=== PATIENT | male | born 1990 | race Caucasian/White ===

== ENCOUNTER 2016-05-11 14:16 | Emergency (ER) | payer BC, OTHER ==
[2016-05-11 14:30] VITALS: BP 149/72; PULSE 66; RESP 16; TEMP 98.4; O2SAT 97
--- NOTE | 2016-05-11 15:07 | UCPHY ---
H & P Patient Type: New Chief Complaint Nursing Narrative: infected pustule r knee HPI/ROS: HPI CHIEF COMPLAINT: Abscess right knee HISTORY OF PRESENT ILLNESS: This patient very pleasant 25-year-old male denies any significant medical or surgical history does not take any daily medications , presents to the urgent care with a small abscess to the medial aspect of the right knee. No joint involvement. Full range of motion. States it has been there for 24 hours. It has been draining has been squeezing yellow purulent material from it. Denies fever. Denies history of MRSA infection. Past Medical History: No significant medical history Past Surgical History: No significant surgical history Social History: denies daily use of tobacco drugs or alcohol Family History: Noncontributory ROS REVIEW OF SYSTEMS: A comprehensive 10 point review of systems is otherwise negative aside from elements mentioned in the history of present illness. Exam Constitutional triage nursing summary reviewed, vital signs reviewed, awake/ alert. Eyes normal conjunctivae and sclera, EOMI, PERRLA. HENT normal inspection, atraumatic, moist mucus membranes, no epistaxis, neck supple/ no meningismus, no raccoon eyes. Respiratory clear to auscultation bilaterally, normal breath sounds, no respiratory distress, no wheezing. Cardiovascular rate normal, regular rhythm, no murmur, no edema, distal pulses normal. Gastrointestinal soft, non-tender, no rebound, no guarding, normal bowel sounds, no distension, no pulsatile mass. Genitourinary no CVA tenderness. Musculoskeletal no midline vertebral tenderness, full range of motion, no calf swelling, no tenderness of extremities, no meningismus, good pulses, neurovascularly intact. Skin right knee: Medial aspect there is an area 3 cm x 3 cm of abscess with a head present. Minimal fluctuance. No significant induration. No involvement of the joint. Full range of motion knee. No streaking. pink, warm , & dry, no rash, skin atraumatic. Neurologic awake, alert and oriented x 3, AAOx3, moves all 4 extremities equally, motor intact, sensory intact, CN II-XII intact, normal cerebellar, normal vision, normal speech. Psychiatric normal mood/affect. Heme/Lymph/Immune no lymphadenopathy. Differential Diagnosis: Includes but is not limited to in a particular order, MRSA infection, strep infection, abscess, cellulitis Medical Decision Making: patient here in the Urgent Care has a very small abscess patient had an I and D of this small abscess. Patient be placed on Keflex and Bactrim. Re-evaluation: I+D: 1% lidocaine and epinephrine was used for local anesthesia. 5 cc were used. Was able to unroof the head of this abscess. There are 3 cc of purulent material drained. He tolerated this procedure very well. No packing. As is not very deep. He understands use warm compresses 3 to 4 times a day for 20 minutes. Take Keflex and Bactrim as prescribed if he develops any worsening redness, swelling, fever, pain he needs to seek re-evaluation in 12:48 p.m. forty eight hours in the emergency room if worse go sooner. He understands. Source: Patient - Personal History Current Tetanus/Diphtheria Vaccine: Yes - Medical/Surgical History Hx Asthma: No Hx Chronic Respiratory Disease: No Hx Diabetes: No Hx Cardiac Disease: No Hx Renal Disease: No Hx Cirrhosis: No Hx Alcoholism: No Hx HIV/AIDS: No Hx Splenectomy or Spleen Trauma: No Other PMH: denies - Family History Significant Family History: No pertinent family hx - Social History Smoking Status: Never smoked Constitutional: Initial Vital Signs Temperature (C) 36.9 C 05/11/16 14:28 Heart Rate 66 05/11/16 14:28 Respiratory Rate 16 05/11/16 14:28 Blood Pressure 149/72 H 05/11/16 14:28 O2 Sat (%) 97 05/11/16 14:28 O2 Delivery Mode Room Air Allergies/Adverse Reactions: No Known Allergies Allergy (Verified 05/11/16 14:27) Home Medications: Medication Instructions Recorded Cephalexin [Keflex] 500 mg PO Q6H #28 cap 05/11/16 Sulfamethox/Tmp 800/160 mg 1 tab PO BID@1000,2200 #14 tab 05/11/16 [Bactrim Ds] Departure - Departure Disposition: Home, Routine, Self-Care Clinical Impression: Abscess Condition: Good Instructions: Abscess (ED) Additional Instructions: 1. Use warm compresses on your abscess. Use warm compresses 4 times a day for 20 minutes. 2.Take antibiotics as prescribed. 3. Return to the urgent care or emergency room if he develops worsening symptoms includes worsening abscess, worsening cellulitis, worsening pain or redness or streaking. Or your knee started hurting you. Referrals: NONE *PRIMARY CARE P,. [Primary Care Provider] - As per Instructions Prescriptions: Cephalexin [Keflex] 500 mg PO Q6H #28 cap Sulfamethox/Tmp 800/160 mg [Bactrim Ds] 1 tab PO BID@1000,2200 #14 tab - PQRS PQRS Measurement: n/a
== END 2016-05-11 16:00 | disposition home or self-care (01) ==
LOC: CED 14:16
PROC: 0H9KXZZ Drainage of Right Lower Leg Skin, External Approach (ICD-10-PCS; principal; 2016-05-11)
DX: L03.115 Cellulitis of right lower limb (principal)
CPT/HCPCS: 99204-PO; G0463-PO